=== PATIENT | male | born 1995 | race Hispanic/Latino ===

== ENCOUNTER 2020-11-24 19:34 | Observation (INO) | payer SELFPAY ==
[2020-11-24] MEDS ORDERED: Lorazepam 2 MG/ML VIAL ONE (19:46)
[2020-11-25 04:09] LABS: Amphetamine Detected (NotDetected); Barbiturates Screen Not Detected (NotDetected); Benzodiazepine Screen Detected (NotDetected); Cocaine Metabolite Screen Not Detected (NotDetected); Medtox Control Line Valid? VALID (VALID); Medtox Reader # READER 1; Methadone Not Detected (NotDetected); Methamphetamine Detected (NotDetected); Opiate Screen Not Detected (NotDetected); Oxycodone Screen Not Detected (NotDetected); Phencyclidine (PCP) Not Detected (NotDetected); THC/Cannabinoid Screen Not Detected (NotDetected); Tricyclic Screen Not Detected (NotDetected)
[2020-11-25] MEDS ORDERED: Acetaminophen 325 MG TAB PO PRN (05:39)
[2020-11-25 05:40] VITALS: BMI 28.9
[2020-11-25 06:06] LABS: Mean Corpuscular Hemoglobin 30.8 pg (27.0-31.0); Mean Corpuscular Volume 93.2 fL (78.0-98.0); Mean Platelet Volume 7.7 fL (7.4-10.4); Platelet Count 314 thou/uL (130-400); RBC Distribution Width 11.6 % (11.5-14.5); Red Blood Cell (RBC) Count 4.55 mill/uL (4.70-6.10); White Blood Cell (WBC) Count 24.5 thou/uL (4.8-10.8)
[2020-11-25 06:08] LABS: MDiff Complete? YES
[2020-11-25 06:09] LABS: Band 4 % (5-11); Lymphocytes 8 % (21-51); Monocytes 5 % (0-10); Neutrophil 82 % (42-75); Platelet Morphology Comment Appears Adequate
[2020-11-25] MEDS ORDERED: Lorazepam 2 MG/ML VIAL ONE (08:23)
[2020-11-25 08:38] LABS: ALT (SGPT) 20 U/L (8-55); AST (SGOT) 51 U/L (5-34); Acetaminophen Less than 6.0 mcg/mL (10.0-30.0); Alcohol Less than 10 mg/dL (Less than 10); Alkaline Phosphatase 111 U/L (40-110); Anion Gap 25 mmol/L (10-20); BUN (Urea Nitrogen) 10 mg/dL (8.9-20.6); Bilirubin, Total 0.8 mg/dL (0.2-1.2); Calc. Creatinine Clearance 120 mL/min (70-130); Calcium 9.3 mg/dL (7.8-10.44); Carbon Dioxide 16 mmol/L (22-29); Chloride 93 mmol/L (98-107); Globulin 3.5 g/dL (2.4-3.5); Glucose 65 mg/dL (70-105); Potassium 3.3 mmol/L (3.5-5.1); Protein, Total 8.5 g/dL (6.0-8.3); Salicylate Less than 8.0 mg/dL (15.0-30.0); Sodium 131 mmol/L (136-145)
[2020-11-25 08:42] VITALS: BP 134/85
[2020-11-25] MEDS ORDERED: Enoxaparin Sodium 40 MG/0.4 ML SYRINGE SC SCH (09:00)
[2020-11-25] MEDS ORDERED: levETIRAcetam in NS 1,000 MG in Premix Bag 1 BAG IVPB SCH (09:29)
[2020-11-25] MEDS ORDERED: Lorazepam 2 MG/ML VIAL SLOW IVP PRN (09:31)
[2020-11-25] MEDS ORDERED: Lorazepam 2 MG/ML VIAL IM SCH (10:00)
[2020-11-25] MEDS ORDERED: Ziprasidone 20 MG VIAL IM SCH (11:45)
[2020-11-25 15:23] VITALS: TEMP 98.2
[2020-11-25] MEDS ORDERED: Sodium Chloride 0.9% 1,000 ML IV SCH (15:30)
== END 2020-11-25 16:54 | disposition left against medical advice (07) ==
LOC: ERS 19:34 → 2SE 11-25 04:00 → IMCU/EMU 11-25 09:31
PROVIDERS: ADMIT Student in an Organized Health Care Education/Training Program; ATTEND Internal Medicine
DX: G93.40 Encephalopathy, unspecified (principal); R56.9 Unspecified convulsions; F14.10 Cocaine abuse, uncomplicated; F15.10 Other stimulant abuse, uncomplicated; F12.10 Cannabis abuse, uncomplicated; D72.829 Elevated white blood cell count, unspecified; F17.200 Nicotine dependence, unspecified, uncomplicated; Z53.29 Procedure and treatment not carried out because of patient's decision for other reasons
CPT/HCPCS: 70450; 80306; 80307; 85025; 93005; 95816; 95819; 95957; 96372; 96374; 96375; 96376; G0378; J1650; J1953; J2060

== ENCOUNTER 2021-02-07 22:46 | Emergency (ER) | payer SELFPAY | END 2021-02-07 23:30 | LOC: ERS 22:46 | DX: M25.511 Pain in right shoulder (principal) | CPT/HCPCS: 99283 ==

== ENCOUNTER 2021-02-08 05:01 | Inpatient (IN) | payer SELFPAY ==
[2021-02-08] MEDS ORDERED: Lorazepam 2 MG/ML VIAL ONE ×2 (05:06→06:12)
[2021-02-08 05:39] LABS: Hemoglobin 13.4 g/dL (14.0-18.0); Mean Corpuscular HGB CONC 32.7 g/dL (32.0-36.0); Mean Corpuscular Hemoglobin 31.6 pg (27.0-31.0); Mean Corpuscular Volume 96.7 fL (78.0-98.0); Mean Platelet Volume 8.2 fL (7.4-10.4); Platelet Count 297 thou/uL (130-400); RBC Distribution Width 12.4 % (11.5-14.5); Red Blood Cell (RBC) Count 4.25 mill/uL (4.70-6.10)
[2021-02-08 05:40] LABS: Bacteria/HPF None Seen HPF (None Seen); Bilirubin Negative (Negative); Blood, Urine Negative (Negative); Clarity Clear (Clear); Glucose, Urine (Dipstick) Normal (Negative); Ketone, Urine Trace mg/dL (Negative); Leukocyte Negative Leu/uL (Negative); Mucous/LPF 4+ LPF (<2+); Nitrite Negative (Negative); Protein, Urine (Dipstick) 50 mg/dL (Neg-Trace); RBC/HPF 0-3 HPF (0-3); Specific Gravity, Urine 1.027 (1.002-1.036); Squamous Epithelial None Seen HPF (0-3); Urobilinogen 3 mg/dL (Less than 2); WBC/HPF 0-3 HPF (0-3)
[2021-02-08 05:45] LABS: Amphetamine Not Detected (NotDetected); Barbiturates Screen Not Detected (NotDetected); Benzodiazepine Screen Not Detected (NotDetected); Cocaine Metabolite Screen Not Detected (NotDetected); Medtox Control Line Valid? VALID (VALID); Medtox Reader # READER 4; Methadone Not Detected (NotDetected); Methamphetamine Not Detected (NotDetected); Opiate Screen Not Detected (NotDetected); Oxycodone Screen Not Detected (NotDetected); Phencyclidine (PCP) Not Detected (NotDetected); THC/Cannabinoid Screen Not Detected (NotDetected); Tricyclic Screen Not Detected (NotDetected)
[2021-02-08 05:57] LABS: Albumin 5.1 g/dL (3.5-5.0)
[2021-02-08 05:58] LABS: Chloride 107 mmol/L (98-107); Potassium 3.2 mmol/L (3.5-5.1); Sodium 146 mmol/L (136-145)
[2021-02-08 05:59] LABS: Glucose 139 mg/dL (70-105)
[2021-02-08 06:00] LABS: Globulin 3.4 g/dL (2.4-3.5); Protein, Total 8.5 g/dL (6.0-8.3)
[2021-02-08 06:01] LABS: Anion Gap 32 mmol/L (10-20); Bilirubin, Total 0.3 mg/dL (0.2-1.2); Carbon Dioxide 10 mmol/L (22-29)
[2021-02-08 06:02] LABS: Alkaline Phosphatase 90 U/L (40-110); Band 2 % (5-11); Eosinophils 3 % (0-10); Lymphocytes 27 % (21-51); MDiff Complete? YES; Monocytes 5 % (0-10); Neutrophil 63 % (42-75); Platelet Morphology Comment Appears Adequate; RBC Morphology Normal; White Blood Cell (WBC) Count 24.1 thou/uL (4.8-10.8)
[2021-02-08 06:03] LABS: Calc. Creatinine Clearance 0 mL/min (70-130)
[2021-02-08 06:04] LABS: AST (SGOT) 31 U/L (5-34); BUN (Urea Nitrogen) 9 mg/dL (8.9-20.6)
[2021-02-08 06:05] LABS: ALT (SGPT) 19 U/L (8-55); Acetaminophen Less than 6.0 mcg/mL (10.0-30.0); Salicylate Less than 8.0 mg/dL (15.0-30.0)
[2021-02-08] MEDS ORDERED: levETIRAcetam in NS 200 ML ONE (06:14)
[2021-02-08 07:24] LABS: Alcohol Less than 10 mg/dL (Less than 10)
[2021-02-08] MEDS: Sodium Chloride 0.9% 1,000 ML IV SCH ×3 (07:56→18:01)
[2021-02-08 16:53] LABS: SARS-CoV-2 NAA Rapid Test Not Detected (NotDetected)
[2021-02-08] MEDS ORDERED: Acetaminophen 650 MG Suppository PR PRN (17:29)
[2021-02-08] MEDS ORDERED: Ondansetron PF 4 MG/2 ML Vial IVP PRN (17:29)
[2021-02-08] MEDS ORDERED: Acetaminophen 500 MG TAB PO PRN (17:29)
[2021-02-08] MEDS ORDERED: Ondansetron ODT 4 MG TAB PO PRN (17:29)
[2021-02-08] MEDS ORDERED: Lorazepam 2 MG/ML VIAL SLOW IVP PRN (17:29)
[2021-02-08 18:16] VITALS: BMI 26.4
[2021-02-08] MEDS: levETIRAcetam in NS 500 MG in Premix Bag 1 BAG IVPB SCH (20:49)
[2021-02-08] MEDS: Famotidine/PF 20 mg/2ml Vial SLOW IVP SCH (20:49)
[2021-02-09] MEDS: Sodium Chloride 0.9% 1,000 ML IV SCH ×2 (02:56→09:13)
[2021-02-09 05:34] LABS: #Eosinphils 0.2 thou/uL (0.0-0.7); #Lymphocytes 1.8 thou/uL (1.20-3.40); #Monocytes 1.1 thou/uL (0.11-0.59); #Neutrophils 7.5 thou/uL (1.40-6.50); %Basophils 0.3 % (0.0-1.0); %Eosinophils 1.7 % (0.0-10.0); %Lymphocytes 16.9 % (21.0-51.0); %Monocytes 10.6 % (0.0-10.0); %Neutrophils 70.6 % (42.0-75.0); Hemoglobin 11.3 g/dL (14.0-18.0); Mean Corpuscular HGB CONC 33.3 g/dL (32.0-36.0); Mean Corpuscular Hemoglobin 31.5 pg (27.0-31.0); Mean Corpuscular Volume 94.4 fL (78.0-98.0); Mean Platelet Volume 7.7 fL (7.4-10.4); Platelet Count 221 thou/uL (130-400); RBC Distribution Width 12.4 % (11.5-14.5); White Blood Cell (WBC) Count 10.7 thou/uL (4.8-10.8)
[2021-02-09 05:58] LABS: ALT (SGPT) 12 U/L (8-55); AST (SGOT) 22 U/L (5-34); Albumin 3.5 g/dL (3.5-5.0); Alkaline Phosphatase 65 U/L (40-110); Anion Gap 13 mmol/L (10-20); BUN (Urea Nitrogen) 8 mg/dL (8.9-20.6); Bilirubin, Total 0.4 mg/dL (0.2-1.2); Calc. Creatinine Clearance 162 mL/min (70-130); Calcium 8.1 mg/dL (7.8-10.44); Carbon Dioxide 22 mmol/L (22-29); Chloride 113 mmol/L (98-107); Globulin 2.5 g/dL (2.4-3.5); Glucose 72 mg/dL (70-105); Potassium 3.2 mmol/L (3.5-5.1); Sodium 145 mmol/L (136-145)
[2021-02-09] MEDS: levETIRAcetam in NS 500 MG in Premix Bag 1 BAG IVPB SCH (09:12)
[2021-02-09] MEDS: Famotidine/PF 20 mg/2ml Vial SLOW IVP SCH ×2 (09:12→20:13)
[2021-02-09] MEDS ORDERED: Potassium Chloride 20 MEQ TAB PO SCH (13:15)
[2021-02-09] MEDS: Potassium Chloride 20 MEQ TAB PO SCH (15:58)
[2021-02-09] MEDS: levETIRAcetam 500 MG TAB PO SCH (20:13)
[2021-02-10 07:52] VITALS: BP 97/55; TEMP 97.9
[2021-02-10] MEDS: Potassium Chloride 20 MEQ TAB PO SCH (09:01)
[2021-02-10] MEDS: levETIRAcetam 500 MG TAB PO SCH (09:01)
[2021-02-10] MEDS: Famotidine/PF 20 mg/2ml Vial SLOW IVP SCH (09:01)
== END 2021-02-10 10:32 | DRG 100 ==
LOC: ERS 05:01 → ERHOLD 06:39 → 2SE 17:00
PROVIDERS: ADMIT Student in an Organized Health Care Education/Training Program; ATTEND Family Medicine
DX: G40.409 Other generalized epilepsy and epileptic syndromes, not intractable, without status epilepticus (principal); G92 Toxic encephalopathy; Z20.822 Contact with and (suspected) exposure to COVID-19; F15.10 Other stimulant abuse, uncomplicated; F12.10 Cannabis abuse, uncomplicated; Z91.14 Patient's other noncompliance with medication regimen; Z79.899 Other long term (current) drug therapy
CPT/HCPCS: 36415; 36416; 51701; 70450; 80053; 80306; 80307; 81003; 81015; 83735; 84443; 85025; 96365; 96372; 96375; J1953; J2060; S0028; U0002; U0005